=== PATIENT | male | born 1970 | race Caucasian/White ===

== ENCOUNTER 2017-01-16 23:59 | Inpatient (IN) | payer BC, OTHER ==
[~2017-01-16] VITALS: Ht 188 cm; Wt 95.6 kg
[~2017-01-16 23:59] MED LIST: SERT100T PO
[2017-01-17] VITALS (8 sets, daily range): BP systolic 94–120; BP diastolic 57–75; PULSE 64–99; TEMP 36.4–37; O2SAT 95–98; Ht 188 cm; Wt 95.6 kg
[2017-01-17] MEDS ORDERED: ACETAMINOPHEN 500 MG TAB PO STA (00:26)
[2017-01-17] MEDS ORDERED: SODIUM CHLORIDE 0.9% 1000ML 1,000 ML IV STA ×4 (00:26→04:36)
[2017-01-17] MEDS ORDERED: BENZONATATE 100MG CAP PO ONE (00:30)
--- NOTE | 2017-01-17 00:31 | EMERGENCY ROOM VISIT NOTE ---
History Report prepared by Jack: Jeferson Sorensen Under the Supervision of: Cathleen NuñezO. First contact with patient: 00:07 Chief Complaint: ILLNESS Stated Complaint: CHILL,UNSTEADY GATE,INCREASED ANXIETY,COUGHING History of Present Illness The patient is a 46 year old male who presents to the Emergency Room with complaints of a worsening illness that started 4-5 days ago. The patient states that his cold started with a cough and runny nose with clear and yellow mucous. He states that the cough is now worse, and he has been coughing up some blood which started tonight. He states that tonight he got home from work around 2100 , and he started to get severe chills for two hours, and he was not able to move due to them. He additionally is complaining of back pain with his coughing , and he has been having a headache which is uncommon for him. The patient states that everyone in his household has been having similar illness recently. He notes that he has been having normal bowel movements recently. The patient states that he is not currently on blood thinners, and he notes that he travels a lot, though not usually out of the state. He adds that he has not had his flu shot yet this year, and he has not taken any Tylenol or Advil tonight. He also notes that he was a social smoker 20 years ago, and he states that he has no history of asthma, though he had allergies as a kid. Pt denies change in vision , fevers, chest pain, shortness of breath, nausea, vomiting, diarrhea, pain with urination, and melena. Source of History: patient Onset: 4-5 days ago Position: other (global) Quality: other (illness) Timing: worsening Associated Symptoms: + fevers, + chills, + headache, + cough, + back pain Review of Systems See HPI for pertinent positives & negatives. A total of 10 systems reviewed and were otherwise negative. Past Medical & Surgical Medical Problems: (1) Anxiety (2) Depression Social History Problems: (1) Alcohol abuse Social History Smoking Status: Never Smoker Housing Status: lives with family Occupation Status: employed Current/Historical Medications Scheduled Ferrous Sulfate (Ferrous Sulfate), 325 MG PO DAILY Fish Oil ([place]-3), 1 CAP PO DAILY Levofloxacin (Levofloxacin), 500 MG PO DAILY Sertraline HCl (Sertraline HCl), 150 MG PO DAILY Thiamine Hcl (Vitamin B-1), Unknown Dose PO DAILY Allergies Coded Allergies: No Known Allergies (Unverified , 01/17/17) Physical Exam Vital Signs Date Time Temp Pulse Resp B/P (MAP) Pulse Ox O2 Delivery O2 Flow Rate FiO2 01/17/17 05:09 96 18 100/58 98 Room Air 01/17/17 04:27 95 20 95/52 97 Room Air 01/17/17 04:09 109 01/17/17 03:15 37.9 106 20 102/51 96 Room Air 01/17/17 01:46 38.6 113 20 102/55 93 Room Air 01/17/17 01:12 119 20 110/59 96 Room Air 01/17/17 00:53 95 Room Air 01/17/17 00:52 124 20 122/70 94 Room Air 01/17/17 00:48 126 01/17/17 00:00 40.1 146 20 95/55 91 Room Air Physical Exam GENERAL: alert, ill appearing, well nourished, no distress, non-toxic EYE EXAM: normal conjunctiva, PERRL and EOM's grossly intact OROPHARYNX: no exudate, no erythema, lips, buccal mucosa, and tongue normal and mucous membranes are moist NECK: supple, no nuchal rigidity, no adenopathy, non-tender LUNGS: One crackle at the right posterior base. Normal chest wall mechanics HEART: no murmurs, S1 normal and S2 normal ABDOMEN: abdomen soft, non-tender, normo-active bowel sounds, no masses, no rebound or guarding. BACK: Back is symmetrical on inspection and there is no deformity, no midline tenderness, no CVA tenderness. SKIN: no rashes and no bruising UPPER EXTREMITIES: upper extremities are grossly normal. LOWER EXTREMITIES: No pitting edema. NEURO EXAM: Normal sensorium, cranial nerves II-XII grossly intact, normal speech, no gross weakness of arms, no gross weakness of legs. Gross sensation intact. Medical Decision & Procedures ER Provider Diagnostic Interpretation: Radiology results have been interpreted by me. CHEST ONE VIEW PORTABLE: Left sided infiltrate. No cardiomegaly. No effusion. No wide mediastinum Laboratory Results Test 01/17/17 00:00 01/17/17 00:00 01/17/17 00:40 01/17/17 03:58 Influenza Type A Antigen Neg for Influ A (NEG) Influenza Type B Antigen Neg for Influ B (NEG) Urine Color YELLOW Urine Appearance CLEAR (CLEAR) Urine pH 6.0 (4.5-7.5) Urine Specific Reagan 1.018 (1.000-1.030) Urine Protein NEG (NEG) Urine Glucose (UA) NEG (NEG) Urine Ketones NEG (NEG) Urine Occult Blood NEG (NEG) Urine Nitrite NEG (NEG) Urine Bilirubin NEG (NEG) Urine Urobilinogen NEG (NEG) Urine Leukocyte Esterase NEG (NEG) Prothrombin Time 11.6 SECONDS (9.0-12.0) Prothromb Time International Ratio 1.1 (0.9-1.1) D-Dimer 370 ug/L FEU (0-500) Total Bilirubin 0.7 mg/dl (0.2-1) Aspartate Amino Transf (AST/SGOT) 14 U/L (15-37) Alanine Aminotransferase (ALT/SGPT) 23 U/L (12-78) Alkaline Phosphatase 52 U/L (45-117) Total Protein 6.6 gm/dl (6.4-8.2) Albumin 3.8 gm/dl (3.4-5.0) Globulin 2.8 gm/dl (2.5-4.0) Albumin/Globulin Ratio 1.4 (0.9-2) Procalcitonin < 0.05 ng/ml (0-0.5) Bedside Lactic Acid Venous 5.07 mmol/L (0.90-1.70) Laboratory results per my review. Medications Administered Medications (Trade) Dose Ordered Sig/Marco Route Start Time Stop Time Status Last Admin Dose Admin Sodium Chloride 1,000 ml @ 999 mls/hr Q1H1M STAT IV 01/17/17 00:26 01/17/17 01:26 DC 01/17/17 00:42 999 MLS/HR Benzonatate (Tessalon Perles Cap) 100 mg NOW ONCE PO 01/17/17 00:30 01/17/17 00:31 DC 01/17/17 00:41 100 MG Acetaminophen (Tylenol Tab) 1,000 mg NOW STAT PO 01/17/17 00:26 01/17/17 00:28 DC 01/17/17 00:42 1,000 MG Azithromycin (Zithromax Tab) 500 mg NOW ONCE PO 01/17/17 01:30 01/17/17 01:31 DC 01/17/17 01:41 500 MG Sodium Chloride 1,000 ml @ 999 mls/hr Q1H1M STAT IV 01/17/17 02:06 01/17/17 03:06 DC 01/17/17 02:24 999 MLS/HR Ketorolac Tromethamine (Toradol Inj) 30 mg NOW STAT IV 01/17/17 02:06 01/17/17 02:07 DC 01/17/17 02:24 30 MG Sodium Chloride 1,000 ml @ 999 mls/hr Q1H1M STAT IV 01/17/17 03:47 01/17/17 04:47 DC 01/17/17 03:47 999 MLS/HR Ceftriaxone Sodium (Rocephin Inj) 1 gm NOW STAT IV 01/17/17 03:47 01/17/17 03:48 DC 01/17/17 04:05 1 GM Sodium Chloride 1,000 ml @ 250 mls/hr Q4H STAT IV 01/17/17 04:36 01/17/17 06:14 DC 01/17/17 04:36 250 MLS/HR ECG Indication: other (illness) Rate (beats per minute): 124 Rhythm: sinus tachycardia Findings: no acute ischemic change, no ectopy, other (Normal axis and normal intervals) ED Course 0007: The patient was evaluated in room B5. A complete history and physical exam was performed. 0026: Tylenol Tab 1000mg PO, Sodium Chloride 1000 ml @ 999 mls/hr IV 0030: Benzonatate 100mg PO 0130: Azithromycin 500mg PO 0156: I reevaluated the patient, and he is feeling better. His heart is down in the 110s. I updated him on the results. 0206: Toradol Inj 30mg IV, Sodium Chloride 1000 ml @ 999 mls/hr IV 0331: I reassessed the patient, and he is still feeling better. 0347: Rocephin 1gm IV, Sodium Chloride 1000 ml @ 999 mls/hr IV 0436: Sodium Chloride 1000 ml @ 250 mls/hr IV 0506: I reevaluated the patient, and he is feeling well, and he notes that his blood pressure has been lower than usual. 0522: I reviewed the patient's case with Dr. Velez. He will evaluate the patient for further management. Medical Decision Differential diagnosis: Etiologies such as viral syndrome, otitis, pharyngitis, pneumonia, influenza, meningitis, urinary tract infection, sepsis, bacteremia, as well as others were entertained. Pt initially improved with IVF and then began to get mildly hypotensive again. Lactated checked after 2 L IVF already infused and found to be 5. Pt initially covered for CAP, cultures drawn as a precaution. Pt reported feeling improved, however given concern for sepsis, pt admitted to medicine. Procalcitonin not highly suggestive of sepsis. Other labs reassuring. No other travel or exposures to suggest atypical or more virulent infection. No recent hospitalization. Pt aware of all results and agreeable with plan. Doubt cardiac etiology. No other GI symptoms. Medication Reconcilliation Current Medication List: was personally reviewed by me Blood Pressure Screening Patient's blood pressure: Low blood pressure Monitored by the hospitalist Consults Time Called: [phone] Consulting Physician: Dr. Velez Returned Call: 05 I reviewed the patient's case with Dr. Velez. He will evaluate the patient for further management. Impression Primary Impression: Sepsis Additional Impression: Pneumonia Critical Care I have personally spent greater than 35 minutes of critical care time in the direct management of this patient. This includes bedside care, interpretation of diagnostic studies, and testing, discussion with consultants, patient, and family members, and other required patient management activities. This 35 minutes is in excess of all separately billable procedures. Scribe Attestation The scribe's documentation has been prepared under my direction and personally reviewed by me in its entirety. I confirm that the note above accurately reflects all work, treatment, procedures, and medical decision making performed by me. Departure Information Dispostion Being Evaluated By Hospitalist Prescriptions Ferrous Sulfate (Ferrous Sulfate) 325 Mg Tab 325 MG PO DAILY, #30 TABS 5 Refills No prescription necessary. Prov: David Caraballo M.D. 01/18/17 Levofloxacin (Levofloxacin) 500 Mg Tab 500 MG PO DAILY, #5 TABS Prov: David Caraballo M.D. 01/18/17 Referrals No Doctor, Assigned (PCP) Patient Instructions My [facility] Problem Qualifiers Primary Impression: Sepsis Sepsis type: sepsis due to unspecified organism Qualified Codes: A41.9 - Sepsis, unspecified organism Additional Impression: Pneumonia Pneumonia type: due to unspecified organism Laterality: left Lung location : lower lobe of lung Qualified Codes: J18.1 - Lobar pneumonia, unspecified organism
[2017-01-17] MEDS ORDERED: OMEG10007 PO (00:46)
[2017-01-17] MEDS ORDERED: THIA100T11 PO (00:47)
[2017-01-17 00:54] LABS: BASO % 0.2 %; BASO ABS # 0.02 K/uL (0-0.2); COMPLETE YES; EOS % 0.6 %; HEMATOCRIT 36.7 % (42-52); IG% 0.1 %; LYMPH % 5.2 %; LYMPH ABS # 0.42 K/uL (1.2-3.4); MEAN CELL VOLUME 82.3 fL (80-100); MEAN CORPUSCULAR HEMOGLOBIN 30.9 pg (25-34); MEAN CORPUSCULAR HGB CONC 37.6 g/dl (32-36); MEAN PLATELET VOLUME 9.9 fL (7.4-10.4); MONO % 7.4 %; NEUT % 86.5 %; PLATELET COUNT 158 K/uL (130-400); RED BLOOD COUNT 4.46 M/uL (4.7-6.1); WHITE BLOOD COUNT 8.14 K/uL (4.8-10.8)
[2017-01-17 01:04] LABS: INR 1.1 (0.9-1.1); PROTHROMBIN TIME (PATIENT) 11.6 SECONDS (9.0-12.0)
[2017-01-17 01:11] LABS: ALT/SGPT 23 U/L (12-78); AST/SGOT 14 U/L (15-37); BLOOD UREA NITROGEN 18 mg/dl (7-18); BUN/CREATININE RATIO 18.2 (10-20); CALCIUM 8.6 mg/dl (8.5-10.1); CARBON DIOXIDE 25 mmol/L (21-32); CHLORIDE 105 mmol/L (98-107); CREATININE 0.96 mg/dl (0.60-1.40); GLUCOSE 115 mg/dl (70-99); POTASSIUM 3.5 mmol/L (3.5-5.1); SODIUM 140 mmol/L (136-145)
[2017-01-17 01:16] LABS: ALB/GLOB RATIO 1.4 (0.9-2); ALKALINE PHOSPHATASE 52 U/L (45-117)
[2017-01-17] MEDS ORDERED: AZITHROMYCIN 250 MG TAB PO ONE (01:30)
[2017-01-17] MEDS ORDERED: KETOROLAC TROMETHAMINE 30 MG/ML VIAL IV STA (02:06)
[2017-01-17] MEDS ORDERED: CEFTRIAXONE SOD INJ 1 GM ADDVIAL IV STA (03:47)
--- NOTE | 2017-01-17 05:35 | Progress Note ---
Progress Note Post Crystalloid Evaluation Date: Jan 17, 2017 Time: 06:20 Subjective Hemoptysis No chest pain Shortness of breath Physical Exam Vital Signs: Vital Signs Date Time Temp Pulse Resp B/P (MAP) Pulse Ox O2 Delivery O2 Flow Rate FiO2 01/17/17 05:09 96 18 100/58 98 Room Air 01/17/17 03:15 37.9 Lungs: + decreased breath sounds Heart: regular rate, rhythm Peripheral Pulse: Normal Skin: Pale Assessment & Plan Presence of: Severe Sepsis Severe sepsis secondary to community-acquired pneumonia. SIRS plus lactic acidosis Initially hypotensive in the ER. Blood pressure improved after initial intervention rendered at the ER. Cultures. Ceftriaxone and Doxycycline. Low threshold for broadening antibiotic coverage given risk factors for healthcare associated pneumonia given patient current hospital worksite. Follow lactic acid. IVF.
[2017-01-17] MEDS ORDERED: DOXYCYCLINE HYCLATE 100 MG CAP PO ONE (06:05)
[2017-01-17] MEDS ORDERED: PNEUMOCOCCAL ADMINISTRATION CHARGE ONE (06:15)
[2017-01-17] MEDS ORDERED: INFLUENZA VIRUS QUAD VACCINE 0.5 ML SYR IM. ONE (06:15)
[2017-01-17] MEDS ORDERED: BENZONATATE 100MG CAP PO PRN (06:15)
[2017-01-17] MEDS ORDERED: LEVALBUTEROL/IPRATROPIUM NEB INH PRN (06:15)
[2017-01-17] MEDS ORDERED: ENOXAPARIN 40 MG/0.4 ML SYR SC SCH (06:15)
[2017-01-17] MEDS ORDERED: INFLUENZA ADMINISTRATION CHARGE ONE (06:15)
[2017-01-17] MEDS ORDERED: TRAMADOL HCL 50 MG TAB PO PRN (06:15)
[2017-01-17] MEDS ORDERED: ONDANSETRON INJ 2 MG/ML 2 ML VIAL IV PRN (06:15)
[2017-01-17] MEDS ORDERED: PNEUMOCOCCAL POLYSACCHARIDES 25 MCG/0.5 ML VIAL/SYR IM. ONE (06:15)
[2017-01-17] MEDS ORDERED: OPTIRAY 320 IV PRN (06:15)
[2017-01-17] MEDS ORDERED: LACTATED RINGER'S 1000ML 1,000 ML IV SCH (06:15)
[2017-01-17] MEDS ORDERED: ACETAMINOPHEN 325 MG TAB PO PRN (06:15)
--- NOTE | 2017-01-17 06:27 | DIAGNOSTIC IMAGING REPORT ---
CHEST 2 VIEWS ROUTINE CLINICAL HISTORY: cough, fever, hemoptysis COMPARISON STUDY: No previous studies for comparison. FINDINGS: The heart is normal in size. There are left lower lobe airspace opacities suspicious for pneumonia. Films subsequent to treatment are recommended in follow-up. Right lung is clear. There are no pleural effusions.[ IMPRESSION: Left lower lobe airspace opacity suspicious for pneumonia. Imaging subsequent to treatment is recommended in follow-up. Electronically signed by: Anthony Owens M.D. 01/17/2017 6:26 AM Dictated Date/Time: 01/17/2017 6:25 AM
[2017-01-17] MEDS ORDERED: LACTATED RINGER'S 1000ML 1,000 ML IV ONE (06:30)
[2017-01-17 06:45] LABS: MAGNESIUM 1.8 mg/dl (1.8-2.4); THYROID STIMULATING HORMONE 0.501 uIu/ml (0.300-4.500)
[2017-01-17] MEDS ORDERED: IPRATROPIUM BROMIDE NEB SOLN 0.02% 2.5 ML VIAL INH PRN (06:45)
[2017-01-17] MEDS ORDERED: LEVALBUTEROL 1.25MG/0.5ML NEB INH PRN (06:45)
[2017-01-17] MEDS ORDERED: METHYLPREDNISOLONE IV 20 MG in SYRINGE 0 ML IV ONE (07:15)
--- NOTE | 2017-01-17 07:23 | HISTORY & PHYSICAL EXAMINATION ---
DATE OF ADMISSION: 01/17/2017 PRIMARY CARE DOCTOR: Dr. Solares. CHIEF COMPLAINT: Cough. HISTORY OF PRESENT ILLNESS: History obtained from the patient and records. Medical history significant for mood disorder, past tobacco abuse. Few days' history of sinus congestion, sick contacts, cough symptoms later productive of yellow sputum, fever, chills, back pain with coughing. Hemoptysis later noted. Headache related to coughing. Denies aspiration. Denies unusual weight loss. No recalled bouts of pneumonia in the past as per patient. Patient brought to the Emergency Room. PX received Ceftriaxone and Azithromycin for sepsis. SBP initially 90s, currently 100s. MEDICAL HISTORY: As above. Has not had this year's seasonal flu vaccine. No history of pneumococcal vaccine. SURGERIES: None. HOME MEDICATIONS: Include sertraline. ALLERGIES: No known drug allergies. FAMILY HISTORY: There is a family history of hypertension. PERSONAL AND SOCIAL HISTORY: Past tobacco use, occasional alcoholic beverage intake. 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 REVIEW OF SYSTEMS: As per HPI, all other ROS negative. PHYSICAL EXAMINATION: VITAL SIGNS: Blood pressure was noted to be 95/55, later 100/58, pulse rate initially 146, later 85, RR 20, temperature 40.1, later temperature 37.9, sats 93 on room air. GENERAL: Noted to be pleasant, no respiratory distress. SKIN: Pallor, warm. HEENT: Pale palpebral conjunctivae, no ptosis, dry buccal mucosa. NECK: Supple. No tenderness. CHEST: Decreased breath sounds. No anterior chest tenderness. CARDIOVASCULAR: Regular rate and rhythm. Palpable LE pulses. ABDOMEN: Soft, nontender. EXTREMITIES: No edema, no tenderness. No gross deformities. NEUROLOGIC: Coherent. No gross focality. LABORATORY DATA: Hemoglobin was noted to be 13.8, hematocrit 36.7, white cell count 8.14, platelets noted to be 158. Sodium noted to be 140, potassium 3.5, chloride 105, CO2 of 25, BUN 18, creatinine 0.9, glucose 115. [id number] lactic acid was noted to be 5. Chest x-ray as per my interpretation, possible infiltrate in the left lower lobe. EKG as per my interpretation, rate 135, sinus tachycardia, no ischemia. ASSESSMENT: 1. Severe sepsis secondary to community-acquired pneumonia. SIRS plus lactic acidosis Initially hypotensive in the ER. Blood pressure improved after initial intervention rendered at the ER. 2. Hemoptysis secondary to above. 3. anemia ? Secondary to hemoptysis 4. Past tobacco abuse. 5. Mood disorder, stable. PLAN: PCU telemetry. Cultures. Ceftriaxone and Doxycycline. Low threshold for broadening antibiotic coverage given risk factors for healthcare associated pneumonia given patient current hospital worksite. Follow lactic acid. IVF. Solu-Medrol [address] chest RE hemoptysis May need Pulmonology opinion pending CT findings and if hemoptysis persistent Antitussives when necessary Pneumovax, flu vaccine prior to discharge. Anemia workup. DVT prophylaxis, SCDs RE hemoptysis. Full code. MTDD
[2017-01-17] MEDS: SERTRALINE HCL 50 MG TAB PO SCH (07:49)
--- NOTE | 2017-01-17 08:19 | DIAGNOSTIC IMAGING REPORT ---
CHEST CT WITH CONTRAST CT DOSE: 545.01 mGycm HISTORY: Acute cough with hemoptysis hemoptysis TECHNIQUE: Multiaxial CT images of the chest were performed following the intravenous administration of 93 mL Optiray 320. A dose lowering technique was utilized adhering to the principles of ALARA. COMPARISON: Chest radiograph 01/17/2017. FINDINGS: Thyroid is homogeneous without nodule identified. Mildly enlarged left paratracheal lymph node is seen on image 110 of series 4, 1.4 x 1.0 cm, likely reactive. There is no pneumothorax or pleural effusion identified. Minimal dependent atelectasis noted bilaterally. Moderate bronchial wall thickening with segmental consolidative and groundglass opacities with coarsening central air bronchograms are present within the basal left lower lobe correlating with the radiographic findings. No definite suspicious pulmonary nodules or focal mass identified. Central airways are patent. No acute mildly of the imaged upper abdomen. Soft tissues are unremarkable. The bones appear intact. IMPRESSION: 1. Segmental consolidative and groundglass opacities within the basal left lower lobe are compatible with pneumonia, correlating with the radiographic findings. Follow-up imaging to document resolution is recommended. 2. Moderate bronchial wall thickening within the distribution of the left lower lobe is compatible with associated bronchitis. 3. Mild left paratracheal adenopathy, likely reactive. Electronically signed by: Shabbir Hussein M.D. 01/17/2017 8:18 AM Dictated Date/Time: 01/17/2017 8:11 AM
[2017-01-17 08:43] LABS: INFLUENZA A PCR Neg for Influ A (NEG); INFLUENZA B PCR Neg for Influ B (NEG)
--- NOTE | 2017-01-17 11:14 | Progress Note ---
Medicine Progress Note Date & Time of Visit: Jan 17, 2017 at 11:14 . Subjective Admitted last night with sepsis secondary to pneumonia. Temp down. Blood pressures improved. Cough somewhat better. No shortness of breath. No chest pain. No nausea, vomiting, diarrhea. . Objective Last 8 Hrs Date Time Temp Pulse Resp B/P (MAP) Pulse Ox O2 Delivery O2 Flow Rate FiO2 01/17/17 08:00 95 Room Air 01/17/17 07:27 36.4 99 20 120/75 (90) 98 Room Air 01/17/17 06:14 37.0 80 22 100/64 98 Room Air 01/17/17 05:51 85 20 102/63 95 Room Air 01/17/17 05:09 96 18 100/58 98 Room Air 01/17/17 04:27 95 20 95/52 97 Room Air 01/17/17 04:09 109 01/17/17 03:15 37.9 106 20 102/51 96 Room Air Physical Exam: General- no acute distress Neck- no JVD Lungs- rales left base Heart- regular Abdomen- normal bowel sounds, soft, nontender Extremities- no pretibial edema or calf tenderness Neuro- alert . Laboratory Results: Last 24 Hours Test 01/17/17 00:00 01/17/17 00:40 01/17/17 03:58 01/17/17 05:45 Influenza Type A Antigen Neg for Influ A Influenza Type B Antigen Neg for Influ B White Blood Count 8.14 K/uL Red Blood Count 4.46 M/uL Hemoglobin 13.8 g/dL Hematocrit 36.7 % Mean Corpuscular Volume 82.3 fL Mean Corpuscular Hemoglobin 30.9 pg Mean Corpuscular Hemoglobin Concent 37.6 g/dl Platelet Count 158 K/uL Mean Platelet Volume 9.9 fL Neutrophils (%) (Auto) 86.5 % Lymphocytes (%) (Auto) 5.2 % Monocytes (%) (Auto) 7.4 % Eosinophils (%) (Auto) 0.6 % Basophils (%) (Auto) 0.2 % Neutrophils # (Auto) 7.04 K/uL Lymphocytes # (Auto) 0.42 K/uL Monocytes # (Auto) 0.60 K/uL Eosinophils # (Auto) 0.05 K/uL Basophils # (Auto) 0.02 K/uL RDW Standard Deviation 38.8 fL RDW Coefficient of Variation 12.9 % Immature Granulocyte % (Auto) 0.1 % Immature Granulocyte # (Auto) 0.01 K/uL Prothrombin Time 11.6 SECONDS Prothromb Time International Ratio 1.1 D-Dimer 370 ug/L FEU Sodium Level 140 mmol/L Potassium Level 3.5 mmol/L Chloride Level 105 mmol/L Carbon Dioxide Level 25 mmol/L Anion Gap 10.0 mmol/L Blood Urea Nitrogen 18 mg/dl Creatinine 0.96 mg/dl Est Creatinine Clear Calc Drug Dose 113.0 ml/min Estimated GFR () 110.2 Estimated GFR (Non- 95.1 BUN/Creatinine Ratio 18.2 Random Glucose 115 mg/dl Calcium Level 8.6 mg/dl Total Bilirubin 0.7 mg/dl Aspartate Amino Transf (AST/SGOT) 14 U/L Alanine Aminotransferase (ALT/SGPT) 23 U/L Alkaline Phosphatase 52 U/L Troponin I < 0.015 ng/ml < 0.015 ng/ml Total Protein 6.6 gm/dl Albumin 3.8 gm/dl Globulin 2.8 gm/dl Albumin/Globulin Ratio 1.4 Procalcitonin < 0.05 ng/ml Bedside Lactic Acid Venous 5.07 mmol/L Lactic Acid Level 1.3 mmol/L Magnesium Level 1.8 mg/dl Total Creatine Kinase 48 U/L Thyroid Stimulating Hormone (TSH) 0.501 uIu/ml Ethyl Alcohol mg/dL < 3.0 mg/dl Test 01/17/17 06:15 01/17/17 08:59 Influenza Type A (RT-PCR) Neg for Influ A Influenza Type B (RT-PCR) Neg for Influ B Stool Occult Blood NEGATIVE Date/Time Source Procedure Growth Status 01/17/17 00:49 Blood Blood Culture Pending Received 01/17/17 00:40 Blood Blood Culture Pending Received Assessment & Plan SEPSIS SECONDARY TO LEFT LOWER LOBE PNEUMONIA Presented with fever, tachycardia, elevated lactate. Imaging by chest x-ray and CT demonstrated left lower lobe infiltrate. Blood and sputum cultures obtained. Initially received azithromycin and ceftriaxone for community-acquired pneumonia. Received fluid resuscitation. Serum lactate from 5 --> 1. Now receiving doxycycline and ceftriaxone. Hemodynamics improved. Oxygenating well on room air. Continue current antibiotics. Will need follow-up imaging for resolution of the left lobe infiltrate and left hilar adenopathy. ANEMIA Hemoglobin 13.8 with relatively low MCV of 82. Iron studies, fecal occult blood ordered. Follow. DEPRESSION Continue sertraline. VTE PROPHYLAXIS Anticoagulants held secondary to anemia. SCD's. Ambulate. DISPOSITION Expected discharge to home. Medical follow-up with Dr. Vance. . Procedures: CT chest IV meds cardiac monitoring . Current Inpatient Medications: Current Inpatient Medications Medications (Trade) Dose Ordered Sig/Marco Route Start Time Stop Time Status Last Admin Dose Admin Ioversol (Optiray 320) 100 ml UD PRN IV 01/17/17 06:15 01/21/17 06:14 Ceftriaxone Sodium 1 gm/ Dextrose 50 ml @ 100 mls/hr Q24H IV 01/18/17 04:00 01/25/17 03:59 Doxycycline Hyclate (Vibramycin Cap) 100 mg BID PO 01/17/17 21:00 01/24/17 20:59 Acetaminophen (Tylenol Tab) 650 mg Q4H PRN PO 01/17/17 06:15 02/16/17 06:14 Benzonatate (Tessalon Perles Cap) 100 mg Q8H PRN PO 01/17/17 06:15 02/16/17 06:14 Sertraline HCl (Zoloft Tab) 150 mg QAM PO 01/17/17 09:00 02/16/17 08:59 01/17/17 07:49 150 MG Tramadol HCl (Ultram Tab) 25 mg Q6H PRN PO 01/17/17 06:15 02/16/17 06:14 Ondansetron HCl (Zofran Inj) 4 mg Q6H PRN IV 01/17/17 06:15 02/16/17 06:14 Lactated Ringer's 1,000 ml @ 100 mls/hr Q10H ONCE IV 01/17/17 06:30 01/17/17 16:29 01/17/17 06:35 100 MLS/HR Ipratropium Vernal (Atrovent 0.02% 0.5MG/2.5ML Neb) 0.5 mg Q4H PRN INH 01/17/17 06:45 02/16/17 06:44 Levalbuterol (Xopenex 1.25MG/ 0.5ML Neb) 1.25 mg Q4H PRN INH 01/17/17 06:45 02/16/17 06:44
[2017-01-17 12:51] LABS: FERRITIN 369.1 ng/ml (8.0-388.0)
[2017-01-17 13:25] LABS: URINE APPEARANCE CLEAR (CLEAR); URINE BILIRUBIN NEG (NEG); URINE COLOR YELLOW; URINE NITRITE NEG (NEG); URINE SPECIFIC GRAVITY 1.018 (1.000-1.030); UROBILINOGEN NEG (NEG); ZZUR CULT IF INDIC CLEAN CATCH NO
[2017-01-17 13:27] LABS: MANUAL MICROSCOPIC REQUIRED? NO; REVIEW REQ? NO
[2017-01-17] MEDS: DOXYCYCLINE HYCLATE 100 MG CAP PO SCH (19:37)
[2017-01-18 00:23] VITALS: BP 92/54; PULSE 77; TEMP 37.1; O2SAT 96
[2017-01-18] MEDS ORDERED: CEFTRIAXONE SOD INJ 1 GM in DEXTROSE 5% ADD-VANTAGE 50ML 50 ML IV SCH (04:00)
[2017-01-18 07:35] LABS: BASO % 0.1 %; BASO ABS # 0.01 K/uL (0-0.2); COMPLETE YES; EOS % 0.8 %; HEMATOCRIT 34.3 % (42-52); IG% 0.3 %; LYMPH % 15.5 %; LYMPH ABS # 1.21 K/uL (1.2-3.4); MEAN CELL VOLUME 83.7 fL (80-100); MEAN CORPUSCULAR HEMOGLOBIN 29.8 pg (25-34); MEAN CORPUSCULAR HGB CONC 35.6 g/dl (32-36); MEAN PLATELET VOLUME 9.6 fL (7.4-10.4); MONO % 9.1 %; NEUT % 74.2 %; PLATELET COUNT 147 K/uL (130-400); WHITE BLOOD COUNT 7.82 K/uL (4.8-10.8)
[2017-01-18 08:02] LABS: CALCIUM 8.8 mg/dl (8.5-10.1); CREATININE 0.8 mg/dl (0.60-1.40); POTASSIUM 3.8 mmol/L (3.5-5.1)
[2017-01-18] MEDS: DOXYCYCLINE HYCLATE 100 MG CAP PO SCH (08:10)
[2017-01-18] MEDS: SERTRALINE HCL 50 MG TAB PO SCH (08:10)
[2017-01-18 08:23] VITALS: BP 126/81; PULSE 69; TEMP 36.6; O2SAT 97
--- NOTE | 2017-01-18 13:36 | Progress Note ---
Medicine Progress Note Date & Time of Visit: Jan 18, 2017 at 11:30 . Subjective Feels much better. No fever since admission. Cough improved. No chest pain or dyspnea. No diarrhea. Ambulating. . Objective Last 8 Hrs Date Time Temp Pulse Resp B/P (MAP) Pulse Ox O2 Delivery O2 Flow Rate FiO2 01/18/17 08:23 36.6 69 18 126/81 (96) 97 Room Air 01/18/17 08:20 Room Air Physical Exam: General- no distress Neck- no JVD Lungs- few rales left base Heart- regular Abdomen- normal bowel sounds, soft, nontender Extremities- no pretibial edema or calf tenderness Neuro- alert . Laboratory Results: Last 24 Hours Test 01/18/17 07:21 White Blood Count 7.82 K/uL Red Blood Count 4.10 M/uL Hemoglobin 12.2 g/dL Hematocrit 34.3 % Mean Corpuscular Volume 83.7 fL Mean Corpuscular Hemoglobin 29.8 pg Mean Corpuscular Hemoglobin Concent 35.6 g/dl Platelet Count 147 K/uL Mean Platelet Volume 9.6 fL Neutrophils (%) (Auto) 74.2 % Lymphocytes (%) (Auto) 15.5 % Monocytes (%) (Auto) 9.1 % Eosinophils (%) (Auto) 0.8 % Basophils (%) (Auto) 0.1 % Neutrophils # (Auto) 5.81 K/uL Lymphocytes # (Auto) 1.21 K/uL Monocytes # (Auto) 0.71 K/uL Eosinophils # (Auto) 0.06 K/uL Basophils # (Auto) 0.01 K/uL RDW Standard Deviation 40.4 fL RDW Coefficient of Variation 13.2 % Immature Granulocyte % (Auto) 0.3 % Immature Granulocyte # (Auto) 0.02 K/uL Sodium Level 142 mmol/L Potassium Level 3.8 mmol/L Chloride Level 108 mmol/L Carbon Dioxide Level 27 mmol/L Anion Gap 7.0 mmol/L Blood Urea Nitrogen 13 mg/dl Creatinine 0.80 mg/dl Est Creatinine Clear Calc Drug Dose 135.6 ml/min Estimated GFR () 125.0 Estimated GFR (Non- 107.9 BUN/Creatinine Ratio 16.0 Random Glucose 109 mg/dl Calcium Level 8.8 mg/dl Assessment & Plan SEPSIS SECONDARY TO LEFT LOWER LOBE PNEUMONIA Presented with fever, tachycardia, elevated lactate. Imaging by chest x-ray and CT demonstrated left lower lobe infiltrate. Blood and sputum cultures obtained. Initially received azithromycin and ceftriaxone for community-acquired pneumonia. Received fluid resuscitation. Serum lactate from 5 --> 1. Now receiving doxycycline and ceftriaxone. Hemodynamics improved. Oxygenating well on room air. Changed to oral therapy with levofloxacin to complete 7 day course of therapy. Will need follow-up CT imaging in about 6 wks for resolution of the left lobe infiltrate and left hilar adenopathy. ANEMIA Hemoglobin 13.8 with relatively low MCV of 82. Hemoglobin fell to 12.2 after fluid resuscitation. No gross GI bleeding. Stool negative for occult blood. Serum iron 21, transferrin saturation 7%. Ferritin was 369 (in the setting of sepsis). Vitamin B12 was 533 and -[id number]-l-l-[id number]- -[id number]-t-[id number]-d- folic acid was 15. [corrected SADAF 01/18/17 @ 22:25] No history of any chronic GI problems; no family history of GI malignancy. No symptoms of upper GI pathology. Outpatient colonoscopy recommended. Start FeSO4. Follow H/H. May need further evaluation/consultation if anemia does not resolve. DEPRESSION Continue sertraline. VTE PROPHYLAXIS Anticoagulants held secondary to anemia. SCD's utilized. Ambulating. DISPOSITION Discharge to home. Medical follow-up with Dr. Vance. . Procedures: CT chest IV meds cardiac monitoring . Current Inpatient Medications: Current Inpatient Medications Medications (Trade) Dose Ordered Sig/Marco Route Start Time Stop Time Status Last Admin Dose Admin Ioversol (Optiray 320) 100 ml UD PRN IV 01/17/17 06:15 01/21/17 06:14 Ceftriaxone Sodium 1 gm/ Dextrose 50 ml @ 100 mls/hr Q24H IV 01/18/17 04:00 01/25/17 03:59 01/18/17 05:02 100 MLS/HR Doxycycline Hyclate (Vibramycin Cap) 100 mg BID PO 01/17/17 20:00 01/24/17 20:59 01/18/17 08:10 100 MG Acetaminophen (Tylenol Tab) 650 mg Q4H PRN PO 01/17/17 06:15 02/16/17 06:14 Benzonatate (Tessalon Perles Cap) 100 mg Q8H PRN PO 01/17/17 06:15 02/16/17 06:14 Sertraline HCl (Zoloft Tab) 150 mg QAM PO 01/17/17 09:00 02/16/17 08:59 01/18/17 08:10 150 MG Tramadol HCl (Ultram Tab) 25 mg Q6H PRN PO 01/17/17 06:15 02/16/17 06:14 Ondansetron HCl (Zofran Inj) 4 mg Q6H PRN IV 01/17/17 06:15 02/16/17 06:14 Ipratropium Willis (Atrovent 0.02% 0.5MG/2.5ML Neb) 0.5 mg Q4H PRN INH 01/17/17 06:45 02/16/17 06:44 Levalbuterol (Xopenex 1.25MG/ 0.5ML Neb) 1.25 mg Q4H PRN INH 01/17/17 06:45 02/16/17 06:44
[2017-01-18] MEDS ORDERED: ZLF50 PO (13:43)
[2017-01-18] MEDS ORDERED: LVQ500 PO (13:45)
[2017-01-18] MEDS ORDERED: FRRS300 PO (13:46)
--- NOTE | 2017-01-18 13:55 | Discharge Instructions ---
Discharge Instructions Date of Service Jan 18, 2017. Admission Reason for Admission: pneumonia . Discharge Discharge Diagnosis / Problem: pneumonia, anemia, low iron levels Discharge Goals Goal(s): Improve disease control Activity Recommendations Activity Limitations: resume your previous activity . Instructions / Follow-Up Instructions / Follow-Up FOLLOW-UP APPOINTMENTS: Please call Dr. Vance's office and ask for an appointment on Monday. INSTRUCTIONS: Chest x-ray and CT scan showed pneumonia. Take levofloxacin (Levaquin) for - 1 pill daily starting 01/[address] scan of chest also showed slightly enlarged lymph node. The enlarged lymph node is probably due to pneumonia. You should have a repeat CT scan done in about 6 weeks to make certain that everything gets better. Please ask Dr. Vance to schedule the scan for you. You have a mild anemia. Iron levels are on the low side. Eat a well-balanced diet. Take ferrous sulfate (iron pill) daily. Recommend that you have a colonoscopy to look for polyps and other bowel problems. Please ask Dr. Vance to schedule the procedure for you. Have Dr. Vance recheck your blood count periodically. You may need further testing if blood count does not improve. Seek medical attention if you have: * temperature above 101 * chest pain, worsening cough, bloody sputum, or trouble breathing * abdominal pain, nausea, vomiting * diarrhea, dark stools or bloody stools * any unanswered questions or concerns Call 911 if symptoms are severe. Call if you have any questions or problems. My cell # is [phone]. You can also reach a [facility] hospitalist on duty at [facility] 24 hours a day by calling [phone]. Please take good care of yourself. David Caraballo . Current Hospital Diet Patient's current hospital diet: Regular Diet Discharge Diet Recommended Diet: Regular Diet Pending Studies Studies pending at discharge: yes List of pending studies: final blood and sputum cultures- will contact you if anything shows up Work Instructions Return To Work: after follow-up Additional Instructions: Landon Loza was absent from work the week of 01/17/17 due to illness. Return to work date to be determined after reassessment. Medical Emergencies . Who to Call and When: Medical Emergencies: If at any time you feel your situation is an emergency, please call 911 immediately. . Non-Emergent Contact Non-Emergency issues call your: Primary Care Provider, Hospital Doctor . . "Provider Documentation" section prepared by David Caraballo. . VTE Core Measure Inpt VTE Proph given/why not?: SCD's
[2017-01-18 14:09] VITALS: BP 126/81; PULSE 69; TEMP 36.6; O2SAT 97
--- NOTE | 2017-01-18 22:22 | Discharge Summary ---
Discharge Summary Date of Service Jan 18, 2017. Discharge Summary Admission Date: Jan 17, 2017 at 05:35 Discharge Date: Jan 18, 2017 Discharge Disposition: Home Principal Diagnosis: sepsis secondary to LLL pneumonia . Secondary Diagnoses/Problems: Other Acute Medical Problems: Anemia, iron deficiency Chronic Medical Problems: (1) Depression . Procedures: IV meds cardiac monitoring CHEST CT WITH CONTRAST FINDINGS: Thyroid is homogeneous without nodule identified. Mildly enlarged left paratracheal lymph node is seen on image 110 of series 4, 1.4 x 1.0 cm, likely reactive. There is no pneumothorax or pleural effusion identified. Minimal dependent atelectasis noted bilaterally. Moderate bronchial wall thickening with segmental consolidative and groundglass opacities with coarsening central air bronchograms are present within the basal left lower lobe correlating with the radiographic findings. No definite suspicious pulmonary nodules or focal mass identified. Central airways are patent. No acute mildly of the imaged upper abdomen. Soft tissues are unremarkable. The bones appear intact. IMPRESSION: 1. Segmental consolidative and groundglass opacities within the basal left lower lobe are compatible with pneumonia, correlating with the radiographic findings. Follow-up imaging to document resolution is recommended. 2. Moderate bronchial wall thickening within the distribution of the left lower lobe is compatible with associated bronchitis. 3. Mild left paratracheal adenopathy, likely reactive. Electronically signed by: Shabbir Hussein M.D. 01/17/2017 8:18 AM Dictated Date/Time: 01/17/2017 8:11 AM . . Pending Studies/Follow-Up: Please arrange for follow-up CT of chest in about 6 wks re: LLL infiltrate, left paratracheal adenopathy. Please arrange for outpatient colonoscopy re: Fe deficiency anemia. Please monitor H/H in clinic. Pneumococcal vaccination and yearly influenza vaccination recommended. . Medication Reconciliation New Medications: Ferrous Sulfate (Ferrous Sulfate) 325 Mg Tab 325 MG PO DAILY, #30 TABS 5 Refills No prescription necessary. Levofloxacin (Levofloxacin) 500 Mg Tab 500 MG PO DAILY, #5 TABS Continued Medications: Fish Oil ([place]-3) 1 Ea Cap 1 CAP PO DAILY, CAP Sertraline HCl (Sertraline HCl) 50 Mg Tab 150 MG PO DAILY, TAB Take 3 pills daily for total of 150 mg. Thiamine Hcl (Vitamin B-1) Unknown Strength Tab Unknown Dose PO DAILY, TAB Admission Information HPI (per Admitting provider): History obtained from the patient and records. Medical history significant for mood disorder, past tobacco abuse. Few days' history of sinus congestion, sick contacts, cough symptoms later productive of yellow sputum, fever, chills, back pain with coughing. Hemoptysis later noted. Headache related to coughing. Denies aspiration. Denies unusual weight loss. No recalled bouts of pneumonia in the past as per patient. Patient brought to the Emergency Room. PX received Ceftriaxone and Azithromycin for sepsis. SBP initially 90s, currently 100s. . Physical Exam (per Admitting): VITAL SIGNS: Blood pressure was noted to be 95/55, later 100/58, pulse rate initially 146, later 85, RR 20, temperature 40.1, later temperature 37.9, sats 93 on room air. GENERAL: Noted to be pleasant, no respiratory distress. SKIN: Pallor, warm. HEENT: Pale palpebral conjunctivae, no ptosis, dry buccal mucosa. NECK: Supple. No tenderness. CHEST: Decreased breath sounds. No anterior chest tenderness. CARDIOVASCULAR: Regular rate and rhythm. Palpable LE pulses. ABDOMEN: Soft, nontender. EXTREMITIES: No edema, no tenderness. No gross deformities. NEUROLOGIC: Coherent. No gross focality. . Hospital Course SEPSIS SECONDARY TO LEFT LOWER LOBE PNEUMONIA Presented with fever, cough, tachycardia, elevated lactate. Imaging by chest x-ray and CT demonstrated left lower lobe infiltrate. Blood and sputum cultures obtained. Initially received azithromycin and ceftriaxone for community-acquired pneumonia. Received fluid resuscitation. Serum lactate from 5 --> 1. Subsequently received doxycycline and ceftriaxone. Hemodynamics improved. Oxygenating well on room air. Blood cultures negative. Sputum grew normal radha. Changed to oral therapy with levofloxacin to complete 7 day course of therapy. Will need follow-up CT imaging in about 6 wks for resolution of the left lobe infiltrate and left paratracheal adenopathy. Nonsmoker. Pneumococcal vaccination and yearly influenza vaccination recommended. ANEMIA Hemoglobin 13.8 with relatively low MCV of 82. Hemoglobin fell to 12.2 after fluid resuscitation. No gross GI bleeding. Stool negative for occult blood. Serum iron 21, transferrin saturation 7%. Ferritin was 369 (in the setting of sepsis). Vitamin B12 was 533 and folic acid was 15. No history of any chronic GI problems; no family history of GI malignancy. No symptoms of upper GI pathology. Outpatient colonoscopy recommended. Start FeSO4. Follow H/H. May need further evaluation/consultation if anemia does not resolve. DEPRESSION Continue sertraline. VTE PROPHYLAXIS Anticoagulants held secondary to anemia. SCD's utilized. Ambulating. DISPOSITION Discharge to home. Medical follow-up with Dr. Vance. . Total time spent on discharge = 40 min. This includes examination of the patient, discharge planning, medication reconciliation, and communication with other providers. . Discharge Instructions Date of Service Jan 18, 2017. Admission Reason for Admission: pneumonia . Discharge Discharge Diagnosis / Problem: pneumonia, anemia, low iron levels Discharge Goals Goal(s): Improve disease control Activity Recommendations Activity Limitations: resume your previous activity . Instructions / Follow-Up Instructions / Follow-Up FOLLOW-UP APPOINTMENTS: Please call Dr. Vance's office and ask for an appointment on Monday. INSTRUCTIONS: Chest x-ray and CT scan showed pneumonia. Take levofloxacin (Levaquin) for - 1 pill daily starting 01/[address] scan of chest also showed slightly enlarged lymph node. The enlarged lymph node is probably due to pneumonia. You should have a repeat CT scan done in about 6 weeks to make certain that everything gets better. Please ask Dr. Vance to schedule the scan for you. You have a mild anemia. Iron levels are on the low side. Eat a well-balanced diet. Take ferrous sulfate (iron pill) daily. Recommend that you have a colonoscopy to look for polyps and other bowel problems. Please ask Dr. Vance to schedule the procedure for you. Have Dr. Vance recheck your blood count periodically. You may need further testing if blood count does not improve. Seek medical attention if you have: * temperature above 101 * chest pain, worsening cough, bloody sputum, or trouble breathing * abdominal pain, nausea, vomiting * diarrhea, dark stools or bloody stools * any unanswered questions or concerns Call 911 if symptoms are severe. Call if you have any questions or problems. My cell # is [phone]. You can also reach a [facility] hospitalist on duty at [facility] 24 hours a day by calling [phone]. Please take good care of yourself. David Caraballo . Current Hospital Diet Patient's current hospital diet: Regular Diet Discharge Diet Recommended Diet: Regular Diet Pending Studies Studies pending at discharge: yes List of pending studies: final blood and sputum cultures- will contact you if anything shows up Work Instructions Return To Work: after follow-up Additional Instructions: Landon Loza was absent from work the week of 01/17/17 due to illness. Return to work date to be determined after reassessment. Medical Emergencies . Who to Call and When: Medical Emergencies: If at any time you feel your situation is an emergency, please call 911 immediately. . Non-Emergent Contact Non-Emergency issues call your: Primary Care Provider, Hospital Doctor . . "Provider Documentation" section prepared by David Caraballo. . VTE Core Measure Inpt VTE Proph given/why not?: SCD's . Additional Copies To Baljit Vance M.D.
== END 2017-01-18 17:25 | disposition home or self-care (01) | DRG 871 ==
LOC: C.EDB 01-17 → C.2T 01-17 05:35 → ENRESERV 01-17 05:40 → C.4E 01-17 11:17 → ENRESERV 01-17 11:41
PROVIDERS: ADMIT Internal Medicine; ATTEND Hospitalist
DX: A41.9 Sepsis, unspecified organism (principal); J18.9 Pneumonia, unspecified organism; E87.2 Acidosis; D50.9 Iron deficiency anemia, unspecified; F32.9 Major depressive disorder, single episode, unspecified; Z79.899 Other long term (current) drug therapy; Z87.891 Personal history of nicotine dependence; Z82.49 Family history of ischemic heart disease and other diseases of the circulatory system

== ENCOUNTER → 2017-04-04 | Outpatient (CLI) | payer BC ==
[~2017-04-04] MED LIST changes: +FRRS300 PO; +LVQ500 PO; +OMEG10007 PO; -SERT100T PO; +THIA100T11 PO; +ZLF50 PO
--- NOTE | 2017-04-04 16:18 | DIAGNOSTIC IMAGING REPORT ---
CT SCAN OF THE CHEST WITHOUT IV CONTRAST CLINICAL HISTORY: Follow-up pneumonia. COMPARISON STUDY: Chest CT dated 01/17/2017. TECHNIQUE: CT scan of the thorax was performed from the thoracic inlet to the upper abdomen. Images are reviewed in the axial, sagittal, and coronal planes. IV contrast was not administered for this examination as per the referring clinician. A dose lowering technique was utilized adhering to the principles of ALARA. CT DOSE: 527.73 mGy.cm FINDINGS: Thyroid: Imaged portions of the thyroid gland are normal in size and attenuation. Thoracic aorta: The thoracic aorta is normal in caliber and demonstrates standard 3-vessel arch anatomy. Heart: The heart is top normal in size and without pericardial effusion. Lungs and pleural spaces: The lungs and pleural spaces are clear. The trachea and central airways are patent. Mediastinum: There is no mediastinal lymphadenopathy. Alcira: Not well assessed without IV contrast. Axillae: There is no axillary lymphadenopathy. Upper abdomen: The spleen is mildly enlarged measuring 15.1 cm in length. Partially visualized upper abdominal viscera is otherwise within normal limits. Skeletal structures: No lytic or blastic bony lesions are seen. IMPRESSION: 1. The lungs are clear. Left lower lobe consolidation has resolved from 01/17/2017. 2. No concerning pulmonary lesion is seen. 3. Splenomegaly. Electronically signed by: Ace Price M.D. 04/04/2017 4:16 PM Dictated Date/Time: 04/04/2017 4:13 PM
== END | disposition home or self-care (01) ==
LOC: C.CTS 16:05
PROVIDERS: ATTEND Family Medicine
DX: R93.8 Abnormal findings on diagnostic imaging of other specified body structures (principal); R91.8 Other nonspecific abnormal finding of lung field